=== PATIENT | male | born 1955 | race Caucasian/White ===

== ENCOUNTER → 2019-07-13 | Outpatient (CLI) | payer MEDICARE ==
[~2019-07-13] MED LIST: AUGMENTIN 875875 MG PO; CLINDAMYCIN HC300 MG PO; FLEXERIL10 MG PO; MOTRIN600 MG PO; NAPROSYN500 MG PO; NKHM; NORCO 5-325 TA1 EACH PO; TRAMADOL HCL50 MG PO; ULTRAM50 MG PO; VICODIN 5/500 505 MG PO
[2019-07-13 09:35] LABS: ALBUMIN 0.5 gm/dl (3.1-4.5); ALKALINE PHOSPHATASE 80 U/L (45-117); BUN 10 mg/dl (7-24); CHLORIDE 105 mmol/L (98-107); CREATININE 0.94 mg/dL (0.70-1.30); SGOT/AST 10 IU/L (3-35); SGPT/ALT 22 U/L (12-78); SODIUM 139 mmol/L (136-145); TOTAL PROTEIN 7.9 gm/dL (6.4-8.2)
== END | disposition home or self-care (01) ==
LOC: CT 09:00 → LAB 09:00
PROVIDERS: Nurse Practitioner Family
DX: R10.84 Generalized abdominal pain (principal); Z12.5 Encounter for screening for malignant neoplasm of prostate; M79.642 Pain in left hand; I10 Essential (primary) hypertension; D22.9 Melanocytic nevi, unspecified; G89.29 Other chronic pain; E66.3 Overweight

== ENCOUNTER → 2019-10-07 | Day surgery (SDC) | payer MEDICARE ==
[~2019-10-07] VITALS: Ht 175.2 cm; Wt 81.6 kg
[~2019-10-07] MED LIST changes: +GLUCOPHAGE500 M1 PO; +TRAZODONE100 MG PO; +ZESTRIL10 MG PO
[2019-10-07 08:21] VITALS: BP 152/80
[2019-10-07 09:20] VITALS: BP 110/60
[2019-10-07 09:35] VITALS: BP 112/63
[2019-10-07 09:50] VITALS: BP 123/78
== END | disposition home or self-care (01) ==
LOC: SDC 10-04 08:00
DX: Z12.11 Encounter for screening for malignant neoplasm of colon (principal); I10 Essential (primary) hypertension; E11.9 Type 2 diabetes mellitus without complications; Z79.84 Long term (current) use of oral hypoglycemic drugs; Z79.899 Other long term (current) drug therapy; Z98.890 Other specified postprocedural states

== ENCOUNTER → 2020-06-30 | Outpatient (CLI) | payer MEDICARE | END | disposition home or self-care (01) | LOC: RAD 12:42 | PROVIDERS: ATTEND Family Medicine | DX: M25.512 Pain in left shoulder (principal) ==

== ENCOUNTER 2024-12-18 15:04 | Emergency (ER) | payer MEDICARE ==
[~2024-12-18] VITALS: Ht 175.2 cm; Wt 77.1 kg
[2024-12-18 15:16] VITALS: BP 148/88
[2024-12-18] MEDS ORDERED: SODIUM CHLORIDE 0.45% 1,000 ML IV ONE (15:25)
[2024-12-18 15:34] LABS: BASO # 0.0 10*3/uL (0.0-0.1); BASO % 0.4 % (0.0-1.0); EOS # 0.1 10*3/uL (0.0-0.4); EOS % 0.9 % (1.0-4.0); MEAN CELL VOLUME 89.3 fl (80.0-94.0); MEAN CORPUSCULAR HGB 29.3 pg (27.0-31.0); MEAN PLATELET VOLUME 9.3 fl (9.6-12.3); MONO # 0.6 10*3/uL (0.1-1.0); MONO % 7.8 % (3.0-9.0); NEUT # 5.9 10*3/uL (2.3-7.9); NEUT % 75.4 % (47.0-73.0); NUCLEATED RED BLOOD CELL 0.0 % (0.0-0.0); NUCLEATED RED BLOOD CELL 0.0 10*3/uL (0.0-0.0); PLATELET COUNT AUTOMATED 244 10*3/uL (130-400); RED CELL DISTRI WIDTH 13.0 % (0-14.5)
[2024-12-18] MEDS ORDERED: SODIUM CHLORIDE 0.9% 1,000 ML IV ONE (15:35)
[2024-12-18 15:57] LABS: BUN 12 mg/dl (9-23)
[2024-12-18 16:12] LABS: ABG BASE EXCESS -1.1 mmol/L (-2.0-3.0); ABG O2 SATURATION 95.2 % (94.0-98.0); ARTERIAL BLOOD GAS PH 7.388 (7.350-7.450); ARTERIAL BLOOD GAS PO2 78.0 mmHg (83.0-108.0)
[2024-12-18 16:23] LABS: BILIRUBIN Negative (Negative); BLOOD Negative (Negative); CLARITY Clear (Clear); COLOR Yellow (Yellow); KETONE Negative (Negative); LEUKO ESTERASE Negative (Negative); NITRITE Negative (Negative); PH 6.5 (4.5-8.0); SPECIFIC GRAVITY 1.010 (1.001-1.030); UROBILINOGEN 1.0 E.U./dl (0.0-1.0)
[2024-12-18 16:34] LABS: HYALINE CAST 0-2
[2024-12-18 16:35] LABS: BACTERIA 2+; EPITHELIAL CELLS 0-2; RBC 0-2 rbc/hpf (0-2); WBC 0-2 wbc/hpf (0-5)
== END 2024-12-18 17:45 | disposition home or self-care (01) ==
LOC: ED 15:04
PROVIDERS: Nurse Practitioner Family
DX: T67.5XXA Heat exhaustion, unspecified, initial encounter (principal); R53.1 Weakness; R06.02 Shortness of breath; X58.XXXA Exposure to other specified factors, initial encounter; Y93.89 Activity, other specified; Y92.89 Other specified places as the place of occurrence of the external cause; Y99.8 Other external cause status